=== PATIENT | female | born 1975 | race African-American/Black ===

== ENCOUNTER → 2018-05-12 | Day surgery (SDC) | payer MEDICARE ==
[~2018-05-12] MED LIST: BC POWDER PACK1 EAC1 PO; BENADRYL25 M1 PO; LIDOCAINE HCL 2% LOCAL INJ 5 ML SDV VIAL INJ ONE; NORCO 5-325 TA1 EACH PO; PROPOFOL IV EMULSION 10 MG/ML 50 ML VIAL ONE; SPIRIVA18 MCG INH
== END | disposition home or self-care (01) ==
LOC: OR 10:45
PROVIDERS: ATTEND Internal Medicine Gastroenterology
DX: K94.20 Gastrostomy complication, unspecified (principal); R05 Cough; Z88.1 Allergy status to other antibiotic agents; Z85.22 Personal history of malignant neoplasm of nasal cavities, middle ear, and accessory sinuses; Z85.819 Personal history of malignant neoplasm of unspecified site of lip, oral cavity, and pharynx; Z80.0 Family history of malignant neoplasm of digestive organs; Z87.01 Personal history of pneumonia (recurrent)
CPT/HCPCS: 43235; 81025; J2001

== ENCOUNTER → 2018-05-19 | Day surgery (SDC) | payer MEDICARE ==
[~2018-05-19] MED LIST changes: +DIATRIZOATE MEGL/DIATRIZOA SOD 30 ML BTL PO ONE; +MIDAZOLAM HCL 2 MG/2 ML VIAL ONE; +MUPIROCIN 2% OINT 22 GM TUBE ONE
--- NOTE | 2018-05-19 16:53 | Diagnostic Imaging Report ---
PROCEDURE:X-RAY ABDOMEN - KUB COMPARISON:None. INDICATIONS:CHECK PEG TUBE PLACEMENT FINDINGS: One view of the abdomen (AP supine) after the injection of Gastroview water-soluble contrast into the percutaneous gastrostomy tube. The stomach, duodenum, and proximal jejunal loops are opacified. No dilated loops of bowel or abnormal air-fluid levels patterns. There is a large amount of stool in the distal colon and rectum. No evidence of pneumoperitoneum. No definite calcifications are seen overlying the urinary system. CONCLUSION: The PEG tube has its tip in the gastric lumen. Contrast injected via the PEG tube opacifies the stomach, duodenum, and proximal jejunal loops. Dictated by: Nomi Archer M.D. on 05/19/2018 at 16:58 Electronically approved by: Nomi Archer M.D. on 05/19/2018 at 16:58
== END | disposition home or self-care (01) ==
LOC: OR 13:45
PROVIDERS: ATTEND Internal Medicine Gastroenterology
DX: K94.23 Gastrostomy malfunction (principal); Z12.11 Encounter for screening for malignant neoplasm of colon; Z80.0 Family history of malignant neoplasm of digestive organs; J45.909 Unspecified asthma, uncomplicated
CPT/HCPCS: 43760; 74018; 81025; J2001; J2250

== ENCOUNTER → 2019-09-07 | Day surgery (SDC) | payer MEDICARE ==
[~2019-09-07] MED LIST changes: +EPHEDRINE SULFATE INJ 50 MG/10 ML SYR ONE; +FENTANYL CITRATE/PF 100MCG/2 ML INJ ONE; -LIDOCAINE HCL 2% LOCAL INJ 5 ML SDV VIAL INJ ONE; -MUPIROCIN 2% OINT 22 GM TUBE ONE; +PAXIL10 MG PO
--- OUTSIDE RECORDS SUMMARY | 2019-09-07 06:13 | XMS REPORT ---
[facility] Address Unknown Phone Unavailable Care Team Providers Care Frame Nailer Name Role Phone UNKNOWN, REFFERING PP Unavailable ISIDORO OZUNA Unavailable Unavailable Payers Payer Name Policy Type Policy Number Effective Date Expiration Date Problems This patient has no known problems. Allergies, Adverse Reactions, Alerts Allergy Name Allergy Type Status Severity Reaction(s) Onset Date Inactive Date Treating Clinician Comments ceftriaxone DA Active SV 2019-08-19 00:00:00 ceftriaxone DA Active U 2019-08-12 00:00:00 ceftriaxone DA Active SV 2019-07-22 00:00:00 ceftriaxone DA Active U 2019-01-05 00:00:00 Medications This patient has no known medications. Encounters Start Date/Time End Date/Time Encounter Type Admission Type Attending Clinicians [facility] [place] Facility Care Department Encounter ID [id number] 00:00:00 2019 00:00:[address] [facility] [id number] 2019-09-07 00:00:00 2019-09-07 00:00:[address] [facility] [id number] 2019-09-06 00:00:00 2019-09-06 00:00:[address] [facility] [id number] 2019-08-31 09:01:22 2019-08-31 09:01:[address] [facility] [id number] 2019-08-31 08:14:2019-08-31 08:14:[address] [facility] [id number] 2019-08-31 00:00:00 2019-08-31 00:00:[address] [facility] [id number] 2019-07-06 00:00:00 2019-07-06 00:00:[address] [facility] [id number] 2019-07-01 00:00:00 2019-07-01 00:00:[address] [facility] [id number] 2019-05-25 10:23:55 2019-05-25 10:23:[address] [facility] [id number] 2019-04-20 00:00:00 2019-04-20 00:00:[address] [facility] [id number] 2019-04-06 00:00:00 2019-04-06 00:00:[address] [facility] [id number] 2019-03-30 12:40:55 2019-03-30 12:40:[address] [facility] [id number] 2019-03-29 00:00:00 2019-03-29 00:00:[address] [facility] [id number] 2019-02-24 12:48:33 2019-02-24 12:48:[address] [facility] [id number] 2019-02-24 12:09:44 2019-02-24 12:09:[address] [facility] [id number] 2019-02-24 11:59:27 2019-02-24 11:59:[address] [facility] [id number] 2019-02-24 10:21:06 2019-02-24 10:21:[address] [facility] [id number] 2018-12-23 00:00:00 2018-12-23 00:00:[address] [facility] [id number] 2018-12-16 00:00:00 2018-12-16 00:00:[address] [facility] [id number] 2018-09-30 14:06:25 2018-09-30 14:06:[address] [facility] [id number] 2018-08-17 00:00:00 2018-08-17 00:00:[address] [facility] [id number] 2018-07-06 00:00:00 2018-07-06 00:00:[address] [facility] [id number] 2018-05-15 00:00:00 2018-05-15 00:00:[address] [facility] [id number] 2018-05-12 00:00:00 2018-05-12 00:00:[address] [facility] [id number] 2018-05-11 00:00:00 2018-05-11 00:00:[address] [facility] [id number] 2018-05-06 00:00:00 2018-05-06 00:00:[address] [facility] [id number] 2018-05-06 00:00:00 2018-05-06 00:00:[address] [facility] [id number] 2018-04-28 00:00:00 2018-04-28 00:00:[address] [facility] [id number] 2018-04-27 08:31:57 2018-04-27 08:31:[address] [facility] [id number] 2018-04-18 10:05:54 2018-04-18 10:05:[address] [facility] [id number] 2018-04-17 18:01:11 2018-04-17 18:01:[address] [facility] [id number] 2018-04-17 17:41:00 2018-04-17 17:41:00 Emergency [facility] [id number] 2018-04-17 15:46:12 2018-04-17 15:46:[address] [facility] [id number] 2018-04-14 00:00:00 2018-04-14 00:00:[address] [facility] [id number] 2018-04-01 00:00:00 2018-04-01 00:00:[address] [facility] [id number] 2018-03-31 12:18:19 2018-03-31 12:18:[address] [facility] [id number] 2018-03-31 12:15:40 2018-03-31 12:15:[address] [facility] [id number] 2018-03-30 00:00:00 2018-03-30 00:00:[address] [facility] [id number] 2018-03-30 00:00:00 2018-03-30 00:00:[address] [facility] [id number] 2018-03-25 13:08:11 2018-03-25 13:08:[address] [facility] [id number] 2018-03-25 00:00:00 2018-03-25 00:00:[address] [facility] [id number] 2018-03-25 00:00:00 2018-03-25 00:00:00 Outpatient [facility] [id number] 2018-03-23 14:27:50 2018-03-23 14:27:50 Outpatient [facility] [id number] 2018-02-16 00:00:00 2018-02-16 00:00:00 Outpatient [facility] [id number] 2018-02-06 00:00:00 2018-02-06 00:00:00 Outpatient [facility] [id number] 2018-01-26 00:00:00 2018-01-26 00:00:00 Outpatient [facility] [id number] 2018-01-19 13:06:39 2018-01-19 13:06:39 Outpatient [facility] [id number] 2018-01-19 00:00:00 2018-01-19 00:00:00 Outpatient [facility] [id number] 2018-01-19 00:00:00 2018-01-19 00:00:00 Outpatient [facility] [id number] 2018-01-12 00:00:00 2018-01-12 00:00:00 Outpatient [facility] [id number] 2018-01-07 00:00:00 2018-01-07 00:00:00 Outpatient [facility] [id number] 2017-12-18 00:00:00 2017-12-18 00:00:00 Outpatient [facility] [id number] 2017-12-17 00:00:00 2017-12-17 00:00:00 Outpatient [facility] [id number] 2017-12-15 00:00:00 2017-12-15 00:00:00 Outpatient [facility] [id number] 2017-11-14 00:00:00 2017-11-14 00:00:00 Outpatient [facility] [id number] 2017-11-10 00:00:00 2017-11-10 00:00:00 Outpatient [facility] [id number] 2017-11-07 00:00:00 2017-11-07 00:00:00 Outpatient [facility] [id number] 2017-10-29 00:00:00 2017-10-29 00:00:00 Outpatient [facility] [id number] 2017-10-15 00:00:00 2017-10-15 00:00:00 Outpatient [facility] [id number] 2017-10-14 00:00:00 2017-10-14 00:00:00 Outpatient [facility] [id number] 2017-10-10 00:00:00 2017-10-10 00:00:[address] [facility] [id number] 2017-10-08 00:00:00 2017-10-08 00:00:[address] [facility] [id number] 2017-09-30 00:00:00 2017-09-30 00:00:[address] [facility] [id number] 2017-09-19 00:00:00 2017-09-19 00:00:[address] [facility] [id number] 2017-09-15 00:00:00 2017-09-15 00:00:[address] [facility] [id number] 2017-09-10 00:00:00 2017-09-10 00:00:[address] [facility] [id number] 2017-09-08 00:00:00 2017-09-08 00:00:[address] [facility] [id number] 2017-08-08 00:00:00 2017-08-08 00:00:[address] [facility] [id number] 2017-07-21 10:59:18 2017-07-21 10:59:[address] [facility] [id number] 2017-06-05 00:00:00 2017-06-05 00:00:[address] [facility] [id number] 2017-06-05 00:00:00 2017-06-05 00:00:[address] [facility] [id number] 2017-04-29 10:10:00 2017-04-29 10:10:00 Outpatient [facility] [id number] Results Test Description Test Time Test Comments Text Results Atomic Results Result Comments CBC W/AUTO DIFF 2019-08-19 12:34:00 WHITE BLOOD CELL (test code=WBC) 5.5 K/mm3 4.5-12.5 RED BLOOD CELL (test code=RBC) 3.34 mill/mm3 3.7-5.2 HEMOGLOBIN (test code=HGB) 8.7 gram/dL 11.5-15.5 HEMATOCRIT (test code=HCT) 29.1 % 36.0-46.0 MEAN CELL VOLUME (test code=MCV) 87.1 fL 80-98 MEAN CELL HGB (test code=MCH) 26.0 picogram 27.0-33.0 MEAN CELL HGB CONCETRATION (test code=MCHC) 29.9 gram/dL 33.0-36.0 RED CELL DISTRIBUTION WIDTH (test code=RDW) 15.9 % 11.6-16.2 RED CELL DISTRIBUTION WIDTH SD (test code=RDW-SD) 50.2 fL 37.0-51.0 PLATELET COUNT (test code=PLT) 436 K/mm3 150-450 MEAN PLATELET VOLUME (test code=MPV) 9.3 fL 6.7-11.0 NEUTROPHIL % (test code=NT%) 79.0 % 39.0-69.0 IMMATURE GRANULOCYTE % (test code=IG%) 0.4 % 0.0-5.0 LYMPHOCYTE % (test code=LY%) 10.9 % 25.0-55.0 MONOCYTE % (test code=MO%) 6.4 % 0.0-10.0 EOSINOPHIL % (test code=EO%) 2.2 % 0.0-5.0 BASOPHIL % (test code=BA%) 1.1 % 0.0-1.0 NUCLEATED RBC % (test code=NRBC%) 0.0 % 0-0 NEUTROPHIL # (test code=NT#) 4.36 K/mm3 1.8-7.7 IMMATURE GRANULOCYTE # (test code=IG#) 0.02 x10 3/uL 0-0.03 LYMPHOCYTE # (test code=LY#) 0.60 K/mm3 1.0-5.0 MONOCYTE # (test code=MO#) 0.35 K/mm3 0-0.8 EOSINOPHIL # (test code=EO#) 0.12 K/mm3 0.0-0.5 BASOPHIL # (test code=BA#) 0.06 K/mm3 0.0-0.2 NUCLEATED RBC # (test code=NRBC#) 0.00 K/mm3 0.0-0.1 MANUAL DIFF REQUIRED (test code=MDIFF) NO, ONLY SCAN NEEDED DIFFERENTIAL [id number] 12:34:00* Test Item Value Reference Range Comments STAIN ACCEPTABILITY (test code=STN ACCEPTABLE) STAIN ACCEPTABLE HYPOCHROMIA (test code=HYPO) 1+ PLATELET ESTIMATE (test code=PLTEST) ADEQUATE PLATELET MORPHOLOGY (test code=PLTMORPH) NORMAL CBC W/AUTO [id number] 11:18:00* Test Item Value Reference Range Comments WHITE BLOOD CELL (test code=WBC) 5.5 K/mm3 4.5-12.5 RED BLOOD CELL (test code=RBC) 3.34 mill/mm3 3.7-5.2 HEMOGLOBIN (test code=HGB) 8.7 gram/dL 11.5-15.5 HEMATOCRIT (test code=HCT) 29.1 % 36.0-46.0 MEAN CELL VOLUME (test code=MCV) 87.1 fL 80-98 MEAN CELL HGB (test code=MCH) 26.0 picogram 27.0-33.0 MEAN CELL HGB CONCETRATION (test code=MCHC) 29.9 gram/dL 33.0-36.0 RED CELL DISTRIBUTION WIDTH (test code=RDW) 15.9 % 11.6-16.2 RED CELL DISTRIBUTION WIDTH SD (test code=RDW-SD) 50.2 fL 37.0-51.0 PLATELET COUNT (test code=PLT) 436 K/mm3 150-450 MEAN PLATELET VOLUME (test code=MPV) 9.3 fL 6.7-11.0 NEUTROPHIL % (test code=NT%) 79.0 % 39.0-69.0 IMMATURE GRANULOCYTE % (test code=IG%) 0.4 % 0.0-5.0 LYMPHOCYTE % (test code=LY%) 10.9 % 25.0-55.0 MONOCYTE % (test code=MO%) 6.4 % 0.0-10.0 EOSINOPHIL % (test code=EO%) 2.2 % 0.0-5.0 BASOPHIL % (test code=BA%) 1.1 % 0.0-1.0 NUCLEATED RBC % (test code=NRBC%) 0.0 % 0-0 NEUTROPHIL # (test code=NT#) 4.36 K/mm3 1.8-7.7 IMMATURE GRANULOCYTE # (test code=IG#) 0.02 x10 3/uL 0-0.03 LYMPHOCYTE # (test code=LY#) 0.60 K/mm3 1.0-5.0 MONOCYTE # (test code=MO#) 0.35 K/mm3 0-0.8 EOSINOPHIL # (test code=EO#) 0.12 K/mm3 0.0-0.5 BASOPHIL # (test code=BA#) 0.06 K/mm3 0.0-0.2 NUCLEATED RBC # (test code=NRBC#) 0.00 K/mm3 0.0-0.1 MANUAL DIFF REQUIRED (test code=MDIFF) NO, ONLY SCAN NEEDED DIFFERENTIAL [id number] 11:18:00* Test Item Value Reference Range Comments STAIN ACCEPTABILITY (test code=STN ACCEPTABLE) MORPHOLOGY COMMENT (test code=MOC) PLATELET ESTIMATE (test code=PLTEST) PLATELET MORPHOLOGY (test code=PLTMORPH) CBC W/AUTO [id number] 11:16:00* Test Item Value Reference Range Comments WHITE BLOOD CELL (test code=WBC) 5.5 K/mm3 4.5-12.5 RED BLOOD CELL (test code=RBC) 3.34 mill/mm3 3.7-5.2 HEMOGLOBIN (test code=HGB) 8.7 gram/dL 11.5-15.5 HEMATOCRIT (test code=HCT) 29.1 % 36.0-46.0 MEAN CELL VOLUME (test code=MCV) 87.1 fL 80-98 MEAN CELL HGB (test code=MCH) 26.0 picogram 27.0-33.0 MEAN CELL HGB CONCETRATION (test code=MCHC) 29.9 gram/dL 33.0-36.0 RED CELL DISTRIBUTION WIDTH (test code=RDW) 15.9 % 11.6-16.2 RED CELL DISTRIBUTION WIDTH SD (test code=RDW-SD) 50.2 fL 37.0-51.0 PLATELET COUNT (test code=PLT) 436 K/mm3 150-450 MEAN PLATELET VOLUME (test code=MPV) 9.3 fL 6.7-11.0 NEUTROPHIL % (test code=NT%) 79.0 % 39.0-69.0 IMMATURE GRANULOCYTE % (test code=IG%) 0.4 % 0.0-5.0 LYMPHOCYTE % (test code=LY%) 10.9 % 25.0-55.0 MONOCYTE % (test code=MO%) 6.4 % 0.0-10.0 EOSINOPHIL % (test code=EO%) 2.2 % 0.0-5.0 BASOPHIL % (test code=BA%) 1.1 % 0.0-1.0 NUCLEATED RBC % (test code=NRBC%) 0.0 % 0-0 NEUTROPHIL # (test code=NT#) 4.36 K/mm3 1.8-7.7 IMMATURE GRANULOCYTE # (test code=IG#) 0.02 x10 3/uL 0-0.03 LYMPHOCYTE # (test code=LY#) 0.60 K/mm3 1.0-5.0 MONOCYTE # (test code=MO#) 0.35 K/mm3 0-0.8 EOSINOPHIL # (test code=EO#) 0.12 K/mm3 0.0-0.5 BASOPHIL # (test code=BA#) 0.06 K/mm3 0.0-0.2 NUCLEATED RBC # (test code=NRBC#) 0.00 K/mm3 0.0-0.1 MANUAL DIFF REQUIRED (test code=MDIFF) NO, ONLY SCAN NEEDED DIFFERENTIAL [id number] 11:16:00* Test Item Value Reference Range Comments STAIN ACCEPTABILITY (test code=STN ACCEPTABLE) CABOT RINGS (test code=CAB) MORPHOLOGY COMMENT (test code=MOC) PLATELET ESTIMATE (test code=PLTEST) PLATELET MORPHOLOGY (test code=PLTMORPH) CBC W/AUTO [id number] 11:16:00* Test Item Value Reference Range Comments WHITE BLOOD CELL (test code=WBC) 5.5 K/mm3 4.5-12.5 RED BLOOD CELL (test code=RBC) 3.34 mill/mm3 3.7-5.2 HEMOGLOBIN (test code=HGB) 8.7 gram/dL 11.5-15.5 HEMATOCRIT (test code=HCT) 29.1 % 36.0-46.0 MEAN CELL VOLUME (test code=MCV) 87.1 fL 80-98 MEAN CELL HGB (test code=MCH) 26.0 picogram 27.0-33.0 MEAN CELL HGB CONCETRATION (test code=MCHC) 29.9 gram/dL 33.0-36.0 RED CELL DISTRIBUTION WIDTH (test code=RDW) 15.9 % 11.6-16.2 RED CELL DISTRIBUTION WIDTH SD (test code=RDW-SD) 50.2 fL 37.0-51.0 PLATELET COUNT (test code=PLT) 436 K/mm3 150-450 MEAN PLATELET VOLUME (test code=MPV) 9.3 fL 6.7-11.0 NEUTROPHIL % (test code=NT%) 79.0 % 39.0-69.0 IMMATURE GRANULOCYTE % (test code=IG%) 0.4 % 0.0-5.0 LYMPHOCYTE % (test code=LY%) 10.9 % 25.0-55.0 MONOCYTE % (test code=MO%) 6.4 % 0.0-10.0 EOSINOPHIL % (test code=EO%) 2.2 % 0.0-5.0 BASOPHIL % (test code=BA%) 1.1 % 0.0-1.0 NUCLEATED RBC % (test code=NRBC%) 0.0 % 0-0 NEUTROPHIL # (test code=NT#) 4.36 K/mm3 1.8-7.7 IMMATURE GRANULOCYTE # (test code=IG#) 0.02 x10 3/uL 0-0.03 LYMPHOCYTE # (test code=LY#) 0.60 K/mm3 1.0-5.0 MONOCYTE # (test code=MO#) 0.35 K/mm3 0-0.8 EOSINOPHIL # (test code=EO#) 0.12 K/mm3 0.0-0.5 BASOPHIL # (test code=BA#) 0.06 K/mm3 0.0-0.2 NUCLEATED RBC # (test code=NRBC#) 0.00 K/mm3 0.0-0.1 MANUAL DIFF REQUIRED (test code=MDIFF) NO, ONLY SCAN NEEDED DIFFERENTIAL [id number] 11:16:00* Test Item Value Reference Range Comments STAIN ACCEPTABILITY (test code=STN ACCEPTABLE) MORPHOLOGY COMMENT (test code=MOC) PLATELET ESTIMATE (test code=PLTEST) PLATELET MORPHOLOGY (test code=PLTMORPH) CBC W/AUTO [id number] 11:15:00* Test Item Value Reference Range Comments WHITE BLOOD CELL (test code=WBC) 5.5 K/mm3 4.5-12.5 RED BLOOD CELL (test code=RBC) 3.34 mill/mm3 3.7-5.2 HEMOGLOBIN (test code=HGB) 8.7 gram/dL 11.5-15.5 HEMATOCRIT (test code=HCT) 29.1 % 36.0-46.0 MEAN CELL VOLUME (test code=MCV) 87.1 fL 80-98 MEAN CELL HGB (test code=MCH) 26.0 picogram 27.0-33.0 MEAN CELL HGB CONCETRATION (test code=MCHC) 29.9 gram/dL 33.0-36.0 RED CELL DISTRIBUTION WIDTH (test code=RDW) 15.9 % 11.6-16.2 RED CELL DISTRIBUTION WIDTH SD (test code=RDW-SD) 50.2 fL 37.0-51.0 PLATELET COUNT (test code=PLT) 436 K/mm3 150-450 MEAN PLATELET VOLUME (test code=MPV) 9.3 fL 6.7-11.0 NEUTROPHIL % (test code=NT%) 79.0 % 39.0-69.0 IMMATURE GRANULOCYTE % (test code=IG%) 0.4 % 0.0-5.0 LYMPHOCYTE % (test code=LY%) 10.9 % 25.0-55.0 MONOCYTE % (test code=MO%) 6.4 % 0.0-10.0 EOSINOPHIL % (test code=EO%) 2.2 % 0.0-5.0 BASOPHIL % (test code=BA%) 1.1 % 0.0-1.0 NUCLEATED RBC % (test code=NRBC%) 0.0 % 0-0 NEUTROPHIL # (test code=NT#) 4.36 K/mm3 1.8-7.7 IMMATURE GRANULOCYTE # (test code=IG#) 0.02 x10 3/uL 0-0.03 LYMPHOCYTE # (test code=LY#) 0.60 K/mm3 1.0-5.0 MONOCYTE # (test code=MO#) 0.35 K/mm3 0-0.8 EOSINOPHIL # (test code=EO#) 0.12 K/mm3 0.0-0.5 BASOPHIL # (test code=BA#) 0.06 K/mm3 0.0-0.2 NUCLEATED RBC # (test code=NRBC#) 0.00 K/mm3 0.0-0.1 MANUAL DIFF REQUIRED (test code=MDIFF) NO, ONLY SCAN NEEDED DIFFERENTIAL [id number] 11:15:00* Test Item Value Reference Range Comments STAIN ACCEPTABILITY (test code=STN ACCEPTABLE) CABOT RINGS (test code=CAB) MORPHOLOGY COMMENT (test code=MOC) PLATELET ESTIMATE (test code=PLTEST) PLATELET MORPHOLOGY (test code=PLTMORPH) BASIC METABOLIC [id number] 10:26:00* Test Item Value Reference Range Comments SODIUM (test code=NA) 141 mmol/L 136-145 POTASSIUM (test code=K) 3.6 mmol/L 3.5-5.1 CHLORIDE (test code=CL) 107.0 mmol/L 98-107 CARBON DIOXIDE (test code=CO2) 27.0 mmol/L 21-32 ANION GAP (test code=GAP) 10.6 10-20 GLUCOSE (test code=GLU) 74 mg/dL 74-106 BLOOD UREA NITROGEN (test code=BUN) 28 mg/dL 7-18 GLOMERULAR FILTRATION RATE (test code=GFR) > 60 mL/min >=60 Estimated GFR by using Modified MDRD formula.Chronic kidney disease is defined as either kidney damageor GFR <60 mL/min/1.73 m2 for >3 months. CREATININE (test code=CREAT) 1.10 mg/dL 0.55-1.02 Note change in reference range due to change in reagent. BUN/CREATININE RATIO (test code=BUN/CREA) 25.9 10-20 CALCIUM (test code=CA) 9.0 mg/dL 8.5-10.1 URINALYSIS DIPSTICK [id number] 01:25:00* Test Item Value Reference Range Comments UA COLOR (test code=COLU) Yellow YELLOW UA APPEARANCE (test code=APPU) Slightly Cloudy CLEAR UA GLUCOSE DIPSTICK (test code=DGLUU) NEGATIVE MG/AL NEGATIVE UA BILIRUBIN DIPSTICK (test code=BILU) NEGATIVE NEGATIVE UA KETONE DIPSTICK (test code=KETU) NEGATIVE MG/DL NEGATIVE UA SPECIFIC GRAVITY (test code=SGU) 1.010 1.000-1.030 UA BLOOD DIPSTICK (test code=JESS) 3+ NEGATIVE UA PH DIPSTICK (test code=CORA) >=9.0 4.5-8.5 UA PROTEIN DIPSTICK (test code=PROU) 30 (1+) NEGATIVE UA UROBILINOGEN DIPSTICK (test code=URO) 0.2 EU/dL <=1.0 UA NITRITE DIPSTICK (test code=LORETO) NEGATIVE NEGATIVE UA LEUKOCYTE ESTERASE DIPSTICK (test code=LEUU) TRACE NEGATIVE UA MICROSCOPIC NEEDED? (test code=UAMICRO) YES UA [id number] 01:25:00* Test Item Value Reference Range Comments UA WBC (test code=WBCU) 10-20 /HPF 0-3 UA RBC (test code=RBCU) TNTC /HPF 0-3 UA EPITHELIAL CELLS (test code=EPIU) FEW /LPF NONE-FEW UA BACTERIA (test code=BACU) FEW /HPF NEGATIVE UA TRICHOMONAS (test code=TRICHU) Few /HPF NONE SEEN CBC W/AUTO [id number] 01:21:00* Test Item Value Reference Range Comments WHITE BLOOD CELL (test code=WBC) 7.2 x10 3/u 4.8-10.8 RED BLOOD CELL (test code=RBC) 3.67 x10 6/uL 4.20-5.40 HEMOGLOBIN (test code=HGB) 9.8 g/dL 12.0-16.0 HEMATOCRIT (test code=HCT) 32.4 % 34.0-47.0 MEAN CELL VOLUME (test code=MCV) 88 fL 80-99 MEAN CELL HGB (test code=MCH) 26.7 pg 27.0-31.0 MEAN CELL HGB CONCENTRATION (test code=MCHC) 30.2 g/dL 33.0-37.0 RED CELL DISTRIBUTION WIDTH (test code=RDW) 15.3 % 11.5-14.5 PLATELET COUNT (test code=PLT) 418 x10 3/uL 130-400 MEAN PLATELET VOLUME (test code=MPV) 9.2 fL 9.4-12.4 NEUTROPHIL % (test code=NT%) 82.8 % 37.0-80.0 LYMPHOCYTE % (test code=LY%) 10.9 % 10.0-50.0 MIXED % (test code=MX%) 6.3 % 0.0-11.0 The Mixed Cell percent and Mixed Cell absolute numberinclude monocytes, eosinophils and basophils. NEUTROPHIL # (test code=NT#) 5.9 x10 3/uL 2.0-6.9 LYMPHOCYTE # (test code=LY#) 0.8 x10 3/uL 0.9-4.1 MIXED # (test code=MX#) 0.5 10e3/mm3 0.2-1.1 CHEMISTRY 8 [id number] 01:20:00* Test Item Value Reference Range Comments SODIUM POC (test code=NAP) mmol/L 138-146 POTASSIUM POC (test code=KP) mmol/L 3.5-4.9 CHLORIDE POC (test code=CLP) mmol/L 98-109 CO2 POC (test code=CO2P) mmol/L 24-29 IONIZED CALCIUM POC (test code=CAIP) mmol/L 1.10-1.32 GLUCOSE POC (test code=GLUP) MG/DL 70-105 BUN POC (test code=BUNP) mg/dL 8-26 CREATININE POC (test code=CREATP) mg/dL 0.6-1.3 GLOMERULAR FILTRATION RATE POC (test code=GFRP) 59 58-135 CHEMISTRY 8 [id number] 01:20:00* Test Item Value Reference Range Comments SODIUM POC (test code=NAP) 142 mmol/L 138-146 POTASSIUM POC (test code=KP) 3.6 mmol/L 3.5-4.9 CHLORIDE POC (test code=CLP) 99 mmol/L 98-109 CO2 POC (test code=CO2P) 36 mmol/L 24-29 IONIZED CALCIUM POC (test code=CAIP) 1.01 mmol/L 1.10-1.32 GLUCOSE POC (test code=GLUP) 84 MG/DL 70-105 BUN POC (test code=BUNP) 36 mg/dL 8-26 CREATININE POC (test code=CREATP) 1.2 mg/dL 0.6-1.3 GLOMERULAR FILTRATION RATE POC (test code=GFRP) 59 58-135 URINALYSIS DIPSTICK [id number] 01:17:00* Test Item Value Reference Range Comments UA COLOR (test code=COLU) Yellow YELLOW UA APPEARANCE (test code=APPU) Slightly Cloudy CLEAR UA GLUCOSE DIPSTICK (test code=DGLUU) NEGATIVE MG/AL NEGATIVE UA BILIRUBIN DIPSTICK (test code=BILU) NEGATIVE NEGATIVE UA KETONE DIPSTICK (test code=KETU) NEGATIVE MG/DL NEGATIVE UA SPECIFIC GRAVITY (test code=SGU) 1.010 1.000-1.030 UA BLOOD DIPSTICK (test code=JESS) 3+ NEGATIVE UA PH DIPSTICK (test code=CORA) >=9.0 4.5-8.5 UA PROTEIN DIPSTICK (test code=PROU) 30 (1+) NEGATIVE UA UROBILINOGEN DIPSTICK (test code=URO) 0.2 EU/dL <=1.0 UA NITRITE DIPSTICK (test code=LORETO) NEGATIVE NEGATIVE UA LEUKOCYTE ESTERASE DIPSTICK (test code=LEUU) TRACE NEGATIVE UA MICROSCOPIC NEEDED? (test code=UAMICRO) YES UA [id number] 01:17:00* Test Item Value Reference Range Comments UA WBC (test code=WBCU) /HPF 0-3 UA RBC (test code=RBCU) /HPF 0-3 UA EPITHELIAL CELLS (test code=EPIU) /LPF NONE-FEW UA BACTERIA (test code=BACU) /HPF NEGATIVE URINALYSIS DIPSTICK [id number] 01:16:00* Test Item Value Reference Range Comments UA COLOR (test code=COLU) Yellow YELLOW UA APPEARANCE (test code=APPU) Slightly Cloudy CLEAR UA GLUCOSE DIPSTICK (test code=DGLUU) NEGATIVE MG/AL NEGATIVE UA BILIRUBIN DIPSTICK (test code=BILU) NEGATIVE NEGATIVE UA KETONE DIPSTICK (test code=KETU) NEGATIVE MG/DL NEGATIVE UA SPECIFIC GRAVITY (test code=SGU) 1.010 1.000-1.030 UA BLOOD DIPSTICK (test code=JESS) 3+ NEGATIVE UA PH DIPSTICK (test code=CORA) >=9.0 4.5-8.5 UA PROTEIN DIPSTICK (test code=PROU) 30 (1+) NEGATIVE UA UROBILINOGEN DIPSTICK (test code=URO) 0.2 EU/dL <=1.0 UA NITRITE DIPSTICK (test code=LORETO) NEGATIVE NEGATIVE UA LEUKOCYTE ESTERASE DIPSTICK (test code=LEUU) TRACE NEGATIVE UA MICROSCOPIC NEEDED? (test code=UAMICRO) YES UA [id number] 01:16:00* Test Item Value Reference Range Comments UA WBC (test code=WBCU) /HPF 0-3 UA RBC (test code=RBCU) /HPF 0-3 UA EPITHELIAL CELLS (test code=EPIU) /LPF NONE-FEW UA BACTERIA (test code=BACU) /HPF NEGATIVE UR HCG [id number] 01:16:00* Test Item Value Reference Range Comments UR HCG QUAL (test code=HCGQLU) NEGATIVE NEGATIVE URINALYSIS DIPSTICK [id number] 01:15:00* Test Item Value Reference Range Comments UA COLOR (test code=COLU) Yellow YELLOW UA APPEARANCE (test code=APPU) Slightly Cloudy CLEAR UA GLUCOSE DIPSTICK (test code=DGLUU) NEGATIVE MG/AL NEGATIVE UA BILIRUBIN DIPSTICK (test code=BILU) NEGATIVE NEGATIVE UA KETONE DIPSTICK (test code=KETU) NEGATIVE MG/DL NEGATIVE UA SPECIFIC GRAVITY (test code=SGU) 1.010 1.000-1.030 UA BLOOD DIPSTICK (test code=JESS) 3+ NEGATIVE UA PH DIPSTICK (test code=CORA) >=9.0 4.5-8.5 UA PROTEIN DIPSTICK (test code=PROU) 30 (1+) NEGATIVE UA UROBILINOGEN DIPSTICK (test code=URO) 0.2 EU/dL <=1.0 UA NITRITE DIPSTICK (test code=LORETO) NEGATIVE NEGATIVE UA LEUKOCYTE ESTERASE DIPSTICK (test code=LEUU) TRACE NEGATIVE - CT ABD PELVIS W/O [id number] 01:07:00Patient Name: ALLYSON ARAUJO Unit No: [id number] EXAMS: CPT: [id number] CT ABD PELVIS W/O CONT 06464 CT abdomen and pelvis without contrast, 08/12/2019. COMPARISON: 08/05/2019. Clinical: Pain. Comment: Noncontrast transaxial plus sagittal/coronal reformatted images were obtained. The liver, spleen, adrenal glands, pancreas, kidneys, aorta and IVC appear grossly normal and stable since 08/05/2019. There is partial opacification of the pelvicalyceal structures. The gallbladder is not identified. There is no biliary duct dilatation or significant retroperitoneal lymphadenopathy. There is a gastrostomy tube. The balloon appears over distended with contrast. Correlation suggested. There is no significant gastric distention, small bowel obstruction or right lower quadrant inflammatory changes. There is partial opacification of the bladder lumen. The uterus appears prominent. There are bilateral pelvic phleboliths. There is moderate free fluid within the pelvis. The regional skeleton is unchanged. All CT scans at this facility are performed using dose optimization techniques including the following: Automated exposure control. IMPRESSION: Interval worsening since 08/05/2019. at 0107 Reported and signed by: Poncho Worrell MD CC: Sy Le MD Technologist: LORETO MILAN CTDI: 3.61 DLP: 167.33 Trscr Dt/Tm: 08/12/2019 (0107) by:[email or web address] Orig Print D/T: S: 08/12/2019 (0110) BATCH NO: N/A Name: ALLYSON ARAUJO [facility] [place] [place]: [place] [id number] [address] : 1975 Age: 43 Sex: F [place] [address] Loc: [facility] Exam Date: 08/12/2019 Status: PRE ER PH: [phone] FAX: PAGE 1 Signed Report - CT CHEST W/O [id number] 01:02:00Patient Name: ALLYSON ARAUJO Unit No: [id number] EXAMS: CPT: [id number] CT CHEST W/O CONTRAST [address]38 CT chest without contrast, 08/12/2019. COMPARISON: 08/05/2019. Clinical: Pain. Comment: Noncontrast transaxial plus sagittal/coronal reformatted images were obtained. The mediastinum and hilar regions appear stable. There are bilateral patchy consolidations as previously described. There are no pleural effusions or pneumothorax. The bony thorax is intact. All CT scans at this facility are performed using dose optimization techniques including the following: Automated exposure control. IMPRESSION: No significant change since 08/05/2019. at 0102 Reported and signed by: Poncho Worrell MD CC: Sy Le MD Technologist: LORETO PLATT CTDI: 3.60 DLP: 134.68 Trscr Dt/Tm: 08/12/2019 (0102) by:[email or web address] Orig Print D/T: S: 08/12/2019 (010) BATCH NO: N/A Name: ALLYSON ARAUJO [facility] [place]: [place] [id number] [address] : 1975 Age: 43 Sex: [place] [address] Loc: [facility] Exam Date: 08/12/2019 Status: PRE ER PH: [phone] FAX: PAGE 1 Signed Report - CT CHEST W/O [id number] 22:02:00Patient Name: ALLYSON HODGE Unit No: [id number] Report Has Been Amended EXAMS: CPT: [id number] CT CHEST W/O CONTRAST 31334 Addendum - 08/05/2019 SIGNED 08/05/2019 ADDENDUM: [id number] CT/CTCHESTWO There is a small to moderate-sized pericardial effusion along the apex of the heart measuring approximately 1 cm in thickness. at 2202 Reported and signed by: Harlan Sargent MD Report CT CHEST WITHOUT CONTRAST: CLINICAL HISTORY: Flank pain COMPARISON: None. FINDINGS: The study is limited as no IV contrast was given. There are patchy mixed airspace and interstitial infiltrates in the left lower lobe and mild airspace haziness in the right lower lobe. Findings are consistent with an infectious or inflammatory process. There is chronic appearing consolidation with air bronchograms in both lung apices. There are no pleural effusions. No pneumothorax is seen. There is no evidence of mediastinal lymphadenopathy. The tracheobronchial tree is patent. No osseous abnormalities are seen. IMPRESSION: Patchy infiltrates in both lower lobes, mainly on the left, consistent with an infectious or inflammatory process. DLP: 338.80 mGy-cm CT dose optimization is achieved for this examination by the use of a CT protocol in accordance with ACR practice standards and adherence to k 9 police officer's recommen dations with automated exposure control. Name: ROLAND HODGE [facility] Phys: [place] [address] [facility] : 1975 Age: 43 Sex : [place] [address] Loc: [facility] Exam Date: 08/05/2019 Status: PRE ER PH: FAX: PAGE 1 Signed Report (CONTINUED) Patient Name: ALLYSON HODGE Unit No: [id number] Report Has Been Amended EXAM S: CPT: [id number] CT [facility] [facility] W/O CONTRAST 38529 <Continued> at 2048 Reported and signed by: Harlan Sargent MD CC: Poncho Bartlett MD Technologist: Janet Griffin TDI: 1.21 DLP: 46.74 Trscr Dt/Tm: 08/05/2019 (2047) by:[email or web address] Orig Print D/T: S: 08/05/2019 (2050) BATCH NO: N/A Name: ALLYSON HODGE [facility] [place]: [place] [id number] [address] : 1975 Age: 43 Sex: [place] [address] Loc: [facility] Exam Date: 08/05/2019 Status: PRE ER PH: FAX: PAGE 2 Signed Report - CT ABD PELVIS W/O [id number] 21:17:00Patient Name: ALLYSON HODGE Unit No: [id number] EXAMS: CPT: [id number] CT ABD PELVIS W/O CONT 28627 CT ABDOMEN AND PELVIS WITHOUT CONTRAST: CLINICAL HISTORY: Flank pain TECHNIQUE: Axial CT imaging of the abdomen and pelvis was performed without IV contrast. Coronal and sagittal reformatted images are submitted. FINDINGS: The study is limited as no IV contrast was given. The liver, spleen, pancreas, right kidney, and adrenal glands appear nor mal. There are several tiny cysts in the left kidney, some hyperdense. Bowel loops are normal in caliber. A gastrostomy tube is present. There is no free air. No abdominal or retroperitoneal mass is seen. There is no free fluid or fluid collection. No inflammatory process is seen in the abdomen or pelvis. The appendix is not visualized. The abdominal aorta is normal in caliber. The uterus is enlarged and likely contains multiple fibroids. No osseous abnormalities are seen. IMPRESSION: No acute abnormality. DLP: 338.80 mGy-cm CT dose optimization is achieved for this exam ination by the use of a CT protocol in accordance with ACR practice jaden dards and adherence to k 9 police officer's recommendations with automated exp osure control. 19 at 7 Reported and signed by: Harlan Sargent MD CC: Poncho Bartlett MD Technologist: Janet Coleman CTDI: 6.96 DLP: 292.06 Trscr Dt/Tm: 08/05/2019 (2116) by:[email or web address] Orig Print D/T: S: 08/05/2019 (2119) BATCH NO: N/A Name: ALLYSON HODGE [facility] [place]: [place] [address] [address] : 1975 Age: 43 Sex: F [place] [address] Loc: [facility] Exam Date: 08/05/2019 Status: PRE ER PH: [phone] FAX: PAGE 1 Signed Report - CT CHEST W/O [id number] 20:48:00Patient Name: ALLYSON HODGE Unit No: [id number] EXAMS: CPT: [id number] CT CHEST W/O CONTRAST 28583 CT CHEST WITHOUT CONTRAST: CLINICAL HISTORY: Flank pain COMPARISON: None. FINDINGS: The study is limited as no IV contrast was given. There are patchy mixed airspace and interstitial infiltrates in the left lower lobe and mild airspace haziness in the right lower lobe. Findings are consistent with an infectious or inflammatory process. There is chronic appearing consolidation with air bronchograms in both lung apices. There are no pleural effusions. No pneumothorax is seen. There is no evidence of mediastinal lymphadenopathy. The tracheobronchial tree is patent. No osseous abnormalities are seen. IMPRESSION: Patchy infiltrates in both lower lobes, mainly on the left, consistent with an infectious or inflammatory process. DLP: 338.80 mGy-cm CT dose optimization is achieved for this examination by the use of a CT protocol in accordance with ACR practice standards and adherence to k 9 police officer's rec ommendations with automated exposure control. Electronical ly Signed by Harlan Sargent MD on 08/05/2019 at 2047 Repo rted and signed by: Harlan Sargent MD CC: Poncho Bartlett MD Technologist: Janet Coleman CTDI: 1.21 DLP: 46.74 Trscr Dt/Tm: 08/05/2019 (2047) by:[email or web address] Orig Print D/T: S: 08/05/2019 (2050) BATCH NO: N/A Name: ALLYSON HODGE Emergency Dept [place]: [place] [address] [address] : 1975 Age: 43 Sex: F [place] [address] Loc: T.CERS Exam Date: 08/05/2019 St at[facility]: PRE ER PH: [phone] FAX: PAGE 1 Signed Report UR HCG [id number] 20:11:00* Test Item Value Reference Range Comments UR HCG QUAL (test code=HCGQLU) NEGATIVE NEGATIVE URINALYSIS DIPSTICK [id number] 20:08:00* Test Item Value Reference Range Comments UA COLOR (test code=COLU) Yellow YELLOW UA APPEARANCE (test code=APPU) Clear CLEAR UA GLUCOSE DIPSTICK (test code=DGLUU) NEGATIVE MG/AL NEGATIVE UA BILIRUBIN DIPSTICK (test code=BILU) NEGATIVE NEGATIVE UA KETONE DIPSTICK (test code=KETU) Trace MG/DL NEGATIVE UA SPECIFIC GRAVITY (test code=SGU) 1.015 1.000-1.030 UA BLOOD DIPSTICK (test code=JESS) NEGATIVE NEGATIVE UA PH DIPSTICK (test code=CORA) 5.5 4.5-8.5 UA PROTEIN DIPSTICK (test code=PROU) NEGATIVE NEGATIVE UA UROBILINOGEN DIPSTICK (test code=URO) 0.2 EU/dL <=1.0 UA NITRITE DIPSTICK (test code=LORETO) NEGATIVE NEGATIVE UA LEUKOCYTE ESTERASE DIPSTICK (test code=LEUU) NEGATIVE NEGATIVE CBC W/AUTO [id number] 19:57:00* Test Item Value Reference Range Comments WHITE BLOOD CELL (test code=WBC) 16.7 x10 3/u 4.8-10.8 RED BLOOD CELL (test code=RBC) 3.61 x10 6/uL 4.20-5.40 HEMOGLOBIN (test code=HGB) 9.7 g/dL 12.0-16.0 HEMATOCRIT (test code=HCT) 31.8 % 34.0-47.0 MEAN CELL VOLUME (test code=MCV) 88 fL 80-99 MEAN CELL HGB (test code=MCH) 26.9 pg 27.0-31.0 MEAN CELL HGB CONCENTRATION (test code=MCHC) 30.5 g/dL 33.0-37.0 RED CELL DISTRIBUTION WIDTH (test code=RDW) 15.9 % 11.5-14.5 PLATELET COUNT (test code=PLT) 320 x10 3/uL 130-400 MEAN PLATELET VOLUME (test code=MPV) 9.3 fL 9.4-12.4 NEUTROPHIL % (test code=NT%) 92.4 % 37.0-80.0 LYMPHOCYTE % (test code=LY%) 2.8 % 10.0-50.0 MIXED % (test code=MX%) 4.8 % 0.0-11.0 The Mixed Cell percent and Mixed Cell absolute numberinclude monocytes, eosinophils and basophils. NEUTROPHIL # (test code=NT#) 15.4 x10 3/uL 2.0-6.9 LYMPHOCYTE # (test code=LY#) 0.5 x10 3/uL 0.9-4.1 MIXED # (test code=MX#) 0.8 10e3/mm3 0.2-1.1 DIFFERENTIAL [id number] 19:57:00* Test Item Value Reference Range Comments PLATELET ESTIMATE (test code=PLTEST) ADEQUATE ADEQUATE PLATELET MORPHOLOGY (test code=PLTMORPH) NORMAL NORMAL TROPONIN I [id number] 19:46:00* Test Item Value Reference Range Comments TROPONIN I RAPID (test code=TROPIRAP) 0.01 ng/mL 0.00-0.08 ISTAT TROPONIN I CRITERIA0.00-0.08 ng/mL - Negative>0.08 ng/mL - Positive The use of serial sampling and testing protocol is arecommended practice.An elevated troponin level alone is often not sufficient fordiagnosis of myocardial infarction. Troponin results obtained by different assays may vary.Evaluation of the extent of myocardial damage based onincrease of troponin would be valid only if similarmethodology is used. COMPREHENSIVE METABOLIC [id number] 19:45:00* Test Item Value Reference Range Comments SODIUM POC (test code=NAP) mmol/L 138-146 POTASSIUM POC (test code=KP) mmol/L 3.5-4.9 CHLORIDE POC (test code=CLP) mmol/L 98-109 CO2 POC (test code=CO2P) mmol/L 24-29 GLUCOSE POC (test code=GLUP) MG/DL 70-105 BUN POC (test code=BUNP) mg/dL 8-26 CREATININE POC (test code=CREATP) mg/dL 0.6-1.3 GLOMERULAR FILTRATION RATE POC (test code=GFRP) 46 58-135 TOTAL PROTEIN (test code=PROT) g/dL 6.4-8.1 ALBUMIN (test code=ALB) g/dL 3.3-5.5 CALCIUM (test code=CA) mg/dL 8.8-10.5 BILIRUBIN TOTAL (test code=BILT) mg/dL 0.2-1.6 SGOT/AST (test code=AST) IU/L 11-38 SGPT/ALT (test code=ALT) IU/L 10-47 ALKALINE PHOSPHATASE (test code=ALKP) IU/L 42-141 COMPREHENSIVE METABOLIC [id number] 19:45:00* Test Item Value Reference Range Comments SODIUM POC (test code=NAP) 134 mmol/L 138-146 POTASSIUM POC (test code=KP) 3.0 mmol/L 3.5-4.9 CHLORIDE POC (test code=CLP) 103 mmol/L 98-109 CO2 POC (test code=CO2P) 26 mmol/L 24-29 GLUCOSE POC (test code=GLUP) 88 MG/DL 70-105 BUN POC (test code=BUNP) 35 mg/dL 8-26 CREATININE POC (test code=CREATP) 1.5 mg/dL 0.6-1.3 GLOMERULAR FILTRATION RATE POC (test code=GFRP) 46 58-135 TOTAL PROTEIN (test code=PROT) 8.2 g/dL 6.4-8.1 ALBUMIN (test code=ALB) 3.4 g/dL 3.3-5.5 CALCIUM (test code=CA) 8.7 mg/dL 8.8-10.5 BILIRUBIN TOTAL (test code=BILT) 0.4 mg/dL 0.2-1.6 SGOT/AST (test code=AST) 62 IU/L 11-38 SGPT/ALT (test code=ALT) 28 IU/L 10-47 ALKALINE PHOSPHATASE (test code=ALKP) 64 IU/L 42-141 CBC W/AUTO [id number] 19:33:00* Test Item Value Reference Range Comments WHITE BLOOD CELL (test code=WBC) 16.7 x10 3/u 4.8-10.8 RED BLOOD CELL (test code=RBC) 3.61 x10 6/uL 4.20-5.40 HEMOGLOBIN (test code=HGB) 9.7 g/dL 12.0-16.0 HEMATOCRIT (test code=HCT) 31.8 % 34.0-47.0 MEAN CELL VOLUME (test code=MCV) 88 fL 80-99 MEAN CELL HGB (test code=MCH) 26.9 pg 27.0-31.0 MEAN CELL HGB CONCENTRATION (test code=MCHC) 30.5 g/dL 33.0-37.0 RED CELL DISTRIBUTION WIDTH (test code=RDW) 15.9 % 11.5-14.5 PLATELET COUNT (test code=PLT) 320 x10 3/uL 130-400 MEAN PLATELET VOLUME (test code=MPV) 9.3 fL 9.4-12.4 NEUTROPHIL % (test code=NT%) 92.4 % 37.0-80.0 LYMPHOCYTE % (test code=LY%) 2.8 % 10.0-50.0 MIXED % (test code=MX%) 4.8 % 0.0-11.0 The Mixed Cell percent and Mixed Cell absolute numberinclude monocytes, eosinophils and basophils. NEUTROPHIL # (test code=NT#) 15.4 x10 3/uL 2.0-6.9 LYMPHOCYTE # (test code=LY#) 0.5 x10 3/uL 0.9-4.1 MIXED # (test code=MX#) 0.8 10e3/mm3 0.2-1.1 CBC W/AUTO [id number] 19:33:00* Test Item Value Reference Range Comments WHITE BLOOD CELL (test code=WBC) 16.7 x10 3/u 4.8-10.8 RED BLOOD CELL (test code=RBC) 3.61 x10 6/uL 4.20-5.40 HEMOGLOBIN (test code=HGB) 9.7 g/dL 12.0-16.0 HEMATOCRIT (test code=HCT) 31.8 % 34.0-47.0 MEAN CELL VOLUME (test code=MCV) 88 fL 80-99 MEAN CELL HGB (test code=MCH) 26.9 pg 27.0-31.0 MEAN CELL HGB CONCENTRATION (test code=MCHC) 30.5 g/dL 33.0-37.0 RED CELL DISTRIBUTION WIDTH (test code=RDW) 15.9 % 11.5-14.5 PLATELET COUNT (test code=PLT) 320 x10 3/uL 130-400 MEAN PLATELET VOLUME (test code=MPV) 9.3 fL 9.4-12.4 NEUTROPHIL % (test code=NT%) 92.4 % 37.0-80.0 LYMPHOCYTE % (test code=LY%) 2.8 % 10.0-50.0 MIXED % (test code=MX%) 4.8 % 0.0-11.0 The Mixed Cell percent and Mixed Cell absolute numberinclude monocytes, eosinophils and basophils. NEUTROPHIL # (test code=NT#) 15.4 x10 3/uL 2.0-6.9 LYMPHOCYTE # (test code=LY#) 0.5 x10 3/uL 0.9-4.1 MIXED # (test code=MX#) 0.8 10e3/mm3 0.2-1.1 - XR CHEST 2 [id number] 11:48:00Patient Name: ALLYSON BUTTS Unit No: [id number] EXAMS: CPT: [id number] XR CHEST 2 V 88981 CHEST 2 VIEWS: COMPARISON: None CLINICAL HISTORY: Cough FINDINGS: Bilateral hypoinflation is seen. Bilateral mild perihilar infiltrate is seen. Focal infiltrate is also seen in the right upper lobe. No significant pleural effusion or pneumothorax identified. Heart size is with in normal limits. A gastrostomy tube is noted. Bony structures appear unremarkable. IMPRESSION: Mild bilateral perihilar infiltrate. Focal infiltrate in the right upper lobe. Follow-up chest radiograph following treatment is recommended. at 1146 Reported and signed by: Farhan Falcon MD CC: Technologist: Rios Dorsey Time: DAP (Gy m2): Air Kerma (mGy): Trscr Dt/Tm: 01/05/2019 (5600) by:Monik Orig Print D/T: S: 01/05/2019 (7345) BATCH NO: N/A Name: ALLYSON BUTTS [facility] ED Phys: Kerri Villavicencio DO [address] : 1975 Age: 43 Sex: [place] [address] Loc: UNK Exam Date: 01/05/2019 Status: DEP ER PH: FAX: PAGE 1 Signed Report ABDOMEN- 1VIEW (KUB)2018-05-19 16:58:00 [place] [address] Patient Name: ALLYSON MAR MR #: [id number] : 1975 Age/Sex: 42/F Req #: [id number] Adm Physician: Ordered by: ISIDORO OZUNA MD Report #: [id number] Location: OR Room/Bed: Procedure: [id number] DX/ABDOMEN-1VIEW (KUB) E xam Date: Exam Time: REPORT STATUS: Signed PROCEDURE: X-RAY ABDOMEN - KUB COMPARISON: None. INDICATIONS: CHECK PEG TUBE PLACEMENT FINDINGS: One view of the abdomen (AP supi ne) after the injection of Gastroview water-soluble contrast into the percuta neous gastrostomy tube. The stomach, duodenum, and proximal jejunal loops are opacified. No dilated loops of bowel or abnormal air-fluid levels pattern s. There is a large amount of stool in the distal colon and rectum. No eviden ce of pneumoperitoneum. No definite calcifications are seen overlying the urinary system. CONCLUSION: The PEG tube has its tip in the ga stric lumen. Contrast injected via the PEG tube opacifies the stomach, duoden um, and proximal jejunal loops. Dictated by: Irma Heath M.D. on at 16:58 Electronically approved by: Irma Heath M.D. on at 16:58 Dictated By: IRMA HEATH MD Electronica lly Signed By: IRMA HEATH MD on 05/19/181657 Transcribed By: RUTH on 1657 COPY TO: ISIDORO OZUNA MD
--- NOTE | 2019-09-07 10:38 | Diagnostic Imaging Report ---
Abdomen, one view Clinical indication: Gastrostomy tube replacement Comparison: None Findings: Gastrografin was injected through the patient's gastrostomy tube and abdominal radiograph was obtained. Contrast opacifies the gastric fundus and first portion of the duodenum. Gastrostomy tube is properly positioned within the lumen of the stomach Impression: Appropriately positioned gastrostomy tube. Signed by: Tim Paige MD on 09/07/2019 10:35 AM
== END | disposition home or self-care (01) ==
LOC: OR 06:11
PROVIDERS: ATTEND Internal Medicine Gastroenterology
DX: T85.598A Other mechanical complication of other gastrointestinal prosthetic devices, implants and grafts, initial encounter (principal); Y83.3 Surgical operation with formation of external stoma as the cause of abnormal reaction of the patient, or of later complication, without mention of misadventure at the time of the procedure; K30 Functional dyspepsia; R63.4 Abnormal weight loss; F32.9 Major depressive disorder, single episode, unspecified; Z88.1 Allergy status to other antibiotic agents; Z85.22 Personal history of malignant neoplasm of nasal cavities, middle ear, and accessory sinuses; Z85.819 Personal history of malignant neoplasm of unspecified site of lip, oral cavity, and pharynx; Z87.01 Personal history of pneumonia (recurrent); Z80.0 Family history of malignant neoplasm of digestive organs
CPT/HCPCS: 43246; 74018; 81025; J2250; J2704; J3010

== ENCOUNTER → 2019-09-08 | Day surgery (SDC) | payer MEDICARE ==
[~2019-09-08] MED LIST changes: -EPHEDRINE SULFATE INJ 50 MG/10 ML SYR ONE; -FENTANYL CITRATE/PF 100MCG/2 ML INJ ONE; -MIDAZOLAM HCL 2 MG/2 ML VIAL ONE; -PROPOFOL IV EMULSION 10 MG/ML 50 ML VIAL ONE
--- NOTE | 2019-09-09 09:06 | Diagnostic Imaging Report ---
PROCEDURE: Gastrostomy tube exchange Procedural Personnel Attending physician(s): Kae Hood MD Fellow physician(s): None Resident physician(s): None Advanced practice provider(s): None Pre-procedure diagnosis: Dislodged gastrostomy tube Post-procedure diagnosis: Same Indication: Tube was dislodged, needs replacement Additional clinical history: None Complications: No immediate complications. IMPRESSION: Gastrostomy tube exchange with placement of a new 22 Thai LETI-GREGORY low profile gastrostomy tube. Plan: The tube is ready for use. PROCEDURE SUMMARY: - Gastrostomy tube exchange under fluoroscopic guidance - Additional procedure(s): None PROCEDURE DETAILS: Pre-procedure Consent: Informed consent for the procedure including risks, benefits and alternatives was obtained and time-out was performed prior to the procedure. Preparation: The site was prepared and draped using maximal sterile barrier technique including cutaneous antisepsis. Anesthesia/sedation Level of anesthesia/sedation: No sedation Gastrostomy tube exchange Local anesthesia was administered. A wire was placed through the indwelling gastrostomy tube and the tube was removed. The new gastrostomy tube was advanced into the stomach, and intragastric position was confirmed with contrast injection. The tube was capped. Pre-existing tube: LETI Gastrostomy tube placed: 22Fr LETI-GREGORY 2.5cm stomal length External catheter securement: None Internal catheter securement: Balloon Contrast Contrast agent: Gastrografin Contrast volume (mL): 10 Radiation Dose Fluoroscopy time (minutes): 0.4 Reference air kerma (mGy): 6.1 Additional Details Additional description of procedure: None Equipment details: None Specimens removed: None Estimated blood loss (mL): Less than 10 Standardized report: [email or web address] Attestation Signer name: Kae Hood MD I attest that I was present for the entire procedure. I reviewed the stored images and agree with the report as written. Signed by: Kae Hood MD on 09/09/2019 9:02 AM
== END | disposition home or self-care (01) ==
LOC: OR 16:29
PROVIDERS: ATTEND Internal Medicine Gastroenterology
DX: K94.23 Gastrostomy malfunction (principal)
CPT/HCPCS: 49450; C1769

== ENCOUNTER → 2023-12-23 | Day surgery (SDC) | payer MEDICARE ==
[~2023-12-23] MED LIST changes: +ACETAMINOPHEN 1000 MG/100 ML 100 ML IV ONE; -DIATRIZOATE MEGL/DIATRIZOA SOD 30 ML BTL PO ONE; +DICYCLOMINE HCL10 MG PO; +FENTANYL CITRATE/PF 100MCG/2 ML INJ ONE; +GLUCAGON FOR INJ 1 MG VIAL ONE; +LIDOCAINE HCL 2% LOCAL INJ 5 ML SDV VIAL INJ ONE; +PREDNISONE5 MG/5 ML PEG; +PROPOFOL IV EMULSION 10 MG/ML 50 ML VIAL IV ONE; +SYMBICORT 80-10.2 GM INH
[2023-12-23] MEDS: LACTATED RINGER'S 1,000 ML ONE (06:36)
[2023-12-23 07:02] LABS: EOSINOPHILS % 0.1 % (0.0-6.0); HEMATOCRIT 35.6 % (34.2-44.1); HEMOGLOBIN 10.7 g/dL (12.0-16.0); LYMPHOCYTES # (AUTO) 1.2 (1.0-3.2); LYMPHOCYTES % 15.7 % (18.0-39.1); MEAN CORPUSCULAR HEMOGLOBIN 27.8 pg (28-32); MEAN CORPUSCULAR HGB CONC 30.1 g/dL (31-35); MEAN CORPUSCULAR VOLUME 92.5 fL (81-99); MONOCYTES # (AUTO) 0.5 (0.2-0.8); NEUTROPHILS # (AUTO) 5.9 (2.1-6.9); NEUTROPHILS % 78.1 % (38.7-80.0); PLATELET COUNT 312 x10e3/uL (140-360); RED BLOOD COUNT 3.85 x10e6/uL (3.6-5.1); RED CELL DISTRIBUTION WIDTH 16.2 % (11.7-14.4); WHITE BLOOD COUNT 7.52 x10e3/uL (4.8-10.8)
[2023-12-23 10:04] VITALS: TEMP 97.3
[2023-12-23 10:26] VITALS: BP 142/91; PULSE 82; RESP 18; O2SAT 99
[2023-12-23] MEDS: ACETAMINOPHEN 1000 MG/100 ML IV ONE (11:15)
== END | disposition home or self-care (01) ==
LOC: OR 05:30
PROVIDERS: ATTEND Internal Medicine Gastroenterology
DX: Z12.11 Encounter for screening for malignant neoplasm of colon (principal); D12.0 Benign neoplasm of cecum; D12.2 Benign neoplasm of ascending colon; D12.4 Benign neoplasm of descending colon; D12.8 Benign neoplasm of rectum; A63.0 Anogenital (venereal) warts; R10.9 Unspecified abdominal pain; K30 Functional dyspepsia; K21.9 Gastro-esophageal reflux disease without esophagitis; R11.2 Nausea with vomiting, unspecified; Z78.9 Other specified health status; R19.8 Other specified symptoms and signs involving the digestive system and abdomen; J44.9 Chronic obstructive pulmonary disease, unspecified; I49.9 Cardiac arrhythmia, unspecified; Z93.0 Tracheostomy status; Z88.1 Allergy status to other antibiotic agents; Z99.81 Dependence on supplemental oxygen; Z01.810 Encounter for preprocedural cardiovascular examination; Z01.812 Encounter for preprocedural laboratory examination; Z79.1 Long term (current) use of non-steroidal anti-inflammatories (NSAID); Z79.899 Other long term (current) drug therapy; Z85.22 Personal history of malignant neoplasm of nasal cavities, middle ear, and accessory sinuses; Z92.21 Personal history of antineoplastic chemotherapy; Z92.3 Personal history of irradiation; Z86.16 Personal history of COVID-19; Z80.0 Family history of malignant neoplasm of digestive organs
CPT/HCPCS: 36415; 43235; 45385; 71046; 85025; 88305; 93005; J0131; J3010; J7121; 43246; 45384; J1610; J2001